=== PATIENT | female | born 1995 | race African-American/Black ===

== ENCOUNTER 2017-05-08 10:43 | Emergency (ER) | payer MEDICAID, OTHER ==
[~2017-05-08] VITALS: Ht 167.6 cm; Wt 55.0 kg
[2017-05-08 12:30] VITALS: BP 112/78
[2017-05-08] MEDS ORDERED: LIDOCAINE HCL 1% 20ML VIAL (Pyxis) INJ MC ONE (13:15)
[2017-05-08] MEDS: CEFTRIAXONE SODIUM 250 MG/VIAL IM ONE ×2 (13:56→13:57)
== END 2017-05-08 14:41 | disposition home or self-care (01) ==
LOC: ER 10:43
DX: L03.90 Cellulitis, unspecified (principal)
CPT/HCPCS: 96372; 99283; J0696; J3490; Z7610

== ENCOUNTER 2017-05-25 09:26 | Emergency (ER) | payer OTHER ==
[~2017-05-25] VITALS: Ht 167.6 cm; Wt 54.0 kg
[2017-05-25 09:45] VITALS: BP 118/80
== END 2017-05-25 11:18 | disposition home or self-care (01) ==
LOC: ER 10:39
DX: N76.4 Abscess of vulva (principal)
CPT/HCPCS: 99281